=== PATIENT | male | born 1950 | race Caucasian/White ===

== ENCOUNTER → 2018-04-05 | Outpatient (CLI) | payer MEDICARE ==
[2018-04-05] VITALS (15 sets, daily range): BP systolic 123–157; BP diastolic 71–100
[~2018-04-05] MED LIST: ACYCLOVIR 400400 MG PO; ASA5UEC PO; HUMALOG100 UNIT/2 SQ; LANTUS100 UNIT/M SUBQ; PRILOSEC 20 MG20 MG PO; SORINE 80 MG TA80 M1 PO
[2018-04-05 11:04] LABS: HEMATOCRIT 52.1 % (42.0-52.0); HEMOGLOBIN 17.5 gm/dL (14.0-18.0); MCH 31.8 pg (26.0-34.0); MCHC 33.7 g/dL (28.0-37.0); MCV 94.2 fL (80.0-100.0); MPV 7.7 fl. (7.2-11.1); RBC 5.52 mil/uL (4.50-6.00); RDW-CV 13.4 % (10.5-14.5); WBC 5.5 thou/uL (4.0-11.0)
[2018-04-05 11:32] LABS: CREATININE 1.2 mg/dL (0.6-1.3); POTASSIUM 4.5 mmol/L (3.5-5.1)
[2018-04-05 11:36] LABS: ALBUMIN 3.7 g/dL (3.4-5.0); TOTAL BILIRUBIN 0.9 mg/dL (<0.1-1.0); TOTAL PROTEIN 7.1 g/dL (6.4-8.2)
--- NOTE | 2018-04-05 16:47 | TEE ---
[place] [address] TRANSESOPHAGEAL ECHOCARDIOGRAM Name: ANTONINA BYNUM Room: [facility]#: [id number] Admission: 04/05/18 Attend Phys: Joon Bernal MD Discharge: Date of : 46 Date of Service: 04/05/18 1646 Report #: [id number] THIS REPORT FOR: //name// APPROVED REPORT Study performed: 04/05/2018 10:53:51 EXAM: Transesophageal Echocardiogram Patient Location: Out-Patient Status: routine BSA: 2.02 HR: 71 bpm BP: 143/92 mmHg Rhythm: Atrial Fibrillation Other Information Study Quality: Good Indications Atrial Fibrillation Echo Enhancing Agent Indication: Rule out Shunt Agent(s) / Amount(s) Used: Agitated Saline 20 cc Procedure After obtaining informed consent, patient underwent transesophageal echo in the [employer]. Type of Sedation : Conscious Sedation Sedation was administered by Yoli Salter RN. Sedation start time: 1110 Case end Time: 1130 Sedation was achieved intravenously with: Versed (4) Fentanyl (50) Transesophageal probe was inserted and advanced into esophagus without difficulty by Joon Bernal MD, [facility]. Echo enhancement indication: R/O Septal defect. Echo enhancement agent administered: Agitated Saline The ISSAC was performed without complications. Synchronized Cardioversion attempted: Successful Synchronized Cardioversion acheived with 360 Joules after 2 attempt(s). Rhythm following Synchronized Cardioversion: Normal Sinus Rhythm Throughout the procedure, the blood pressure, pulse oximetry, cardiac rhythm, and rate were monitored. The patient tolerated the procedure without adverse [place] [address] TRANSESOPHAGEAL ECHOCARDIOGRAM Name: FLETCHERANTONINA G Room: [facility]#: [id number] Admission: 04/05/18 Attend Phys: Joon Bernal MD Discharge: Date of : 46 Date of Service: 04/05/18 1646 Report #: [id number] from conscious sedation was uneventful and vital signs were stable. After 300 J, the patient had brief sinus rhythm, but atrial fibrillation returned. Sinus rhythm noted after second cardioversion. Left Ventricle The left ventricle is normal size. There is normal LV segmental wall motion. There is normal left ventricular wall thickness. Left ventricular systolic function is normal. The left ventricular ejection fraction is within the normal range. LVEF is 60-65%. Right Ventricle The right ventricle is normal size. The right ventricular systolic function is normal. Atria Left atrium is mildly dilated. No thrombus is visualized in the left atrium or appendage. Interatrial septum is intact without evidence of ASD or PFO. The right atrium size is normal. Aortic Valve Moderate aortic valve sclerosis. No aortic regurgitation is present. Moderate aortic stenosis. Mitral Valve The mitral valve is normal in structure. Mild mitral regurgitation. No evidence of mitral valve stenosis. Tricuspid Valve The tricuspid valve is normal in structure. Trace tricuspid regurgitation. Pulmonic Valve The pulmonary valve is normal in structure. There is no pulmonic valvular regurgitation. Great Vessels The aortic root is normal in size. Pericardium There is no pericardial effusion. <Conclusion> LVEF is 60-65%. Left atrium [place] [address] TRANSESOPHAGEAL ECHOCARDIOGRAM Name: ANTONINA BYNUM Room: [facility]#: [id number] Admission: 04/05/18 Attend Phys: Joon Bernal MD Discharge: Date of : 46 Date of Service: 04/05/181645 Report #: [id number] No thrombus is visualized in the left atrium or appendage. Moderate aortic stenosis. Mild mitral regurgitation. Interatrial septum is intact without evidence of ASD or PFO. successful cardioversion of atrial fibrillation <ELECTRONICALLY SIGNED> By: Joon Bernal MD, FACC 04/05/181645 45 45 Joon Bernal MD, FACC /INF
== END | disposition home or self-care (01) ==
LOC: M.CL 09:31
PROVIDERS: Internal Medicine Cardiovascular Disease
DX: I51.7 Cardiomegaly (principal); I48.91 Unspecified atrial fibrillation; Z79.899 Other long term (current) drug therapy; Z88.8 Allergy status to other drugs, medicaments and biological substances; Z79.4 Long term (current) use of insulin; Z79.82 Long term (current) use of aspirin; Z98.890 Other specified postprocedural states